=== PATIENT | female | born 1995 | race Caucasian/White ===

== ENCOUNTER → 2016-05-08 | Outpatient (CLI) | payer BC ==
[~2016-05-08] VITALS: Ht 166.4 cm; Wt 124.7 kg
[~2016-05-08] MED LIST: JULEBER 28 DAY1 EACH PO; LEXAPRO 10MG10 MG PO; MINOCIN 50M50 MG/CAP PO; MULTIPLE VITAMI1 CAP PO; MULTIVITAMIN FO1 CAP PO; NORCO 325 MG-51 TAB PO; PROMETHAZINE12.5 M5 PO; ROXICODONE 55 MG/TAB PO; SYNTHROID 0.0.025 MG PO
[2016-05-08 08:18] VITALS: BP 131/50; PULSE 107
[2016-05-08 09:23] VITALS: BP 131/50; PULSE 107
[2016-05-08 09:59] VITALS: BP 131/50; PULSE 107
== END ==
LOC: LIGHT
DX: F33.8 Other recurrent depressive disorders (principal); R73.01 Impaired fasting glucose; E03.8 Other specified hypothyroidism; E88.81 Metabolic syndrome and other insulin resistance; Z68.42 Body mass index [BMI] 45.0-49.9, adult

== ENCOUNTER → 2016-06-13 | Outpatient (CLI) | payer BC ==
[~2016-06-13] VITALS: Ht 166.4 cm; Wt 122.0 kg
[2016-06-13 13:09] VITALS: BP 133/65; PULSE 107
== END ==
LOC: LIGHT 05-20 10:14
DX: F33.8 Other recurrent depressive disorders (principal); E03.8 Other specified hypothyroidism; E88.81 Metabolic syndrome and other insulin resistance; Z68.41 Body mass index [BMI] 40.0-44.9, adult

== ENCOUNTER → 2016-06-17 | Outpatient (CLI) | payer BC | LOC: LIGHT 08:54 | DX: F33.8 Other recurrent depressive disorders (principal); E03.8 Other specified hypothyroidism; E88.81 Metabolic syndrome and other insulin resistance; Z68.42 Body mass index [BMI] 45.0-49.9, adult ==

== ENCOUNTER → 2016-07-08 | Outpatient (CLI) | payer BC | LOC: LIGHT 10:06 | DX: Z01.818 Encounter for other preprocedural examination (principal) ==

== ENCOUNTER → 2016-07-11 | Outpatient (CLI) | payer BC ==
[~2016-07-11] VITALS: Ht 166.4 cm; Wt 121.1 kg
[2016-07-11 10:19] VITALS: BP 122/54; PULSE 90
== END ==
LOC: LIGHT 10:15
DX: F33.9 Major depressive disorder, recurrent, unspecified (principal); E03.9 Hypothyroidism, unspecified; E88.81 Metabolic syndrome and other insulin resistance

== ENCOUNTER → 2016-07-22 | Outpatient (CLI) | payer BC | LOC: BHSO 08:44 | DX: Z01.818 Encounter for other preprocedural examination (principal) ==

== ENCOUNTER → 2016-07-22 | Outpatient (CLI) | payer BC ==
[~2016-07-22] VITALS: Ht 166.4 cm; Wt 123.8 kg
[2016-07-22 18:17] VITALS: BP 116/62; PULSE 96
== END ==
LOC: LIGHT 13:45 → BHSO 13:45 → LIGHT 13:53
DX: F33.9 Major depressive disorder, recurrent, unspecified (principal); E03.9 Hypothyroidism, unspecified; E88.81 Metabolic syndrome and other insulin resistance

== ENCOUNTER → 2016-08-06 | Outpatient (CLI) | payer BC | LOC: LIGHT | DX: Z02.89 Encounter for other administrative examinations (principal) ==

== ENCOUNTER 2016-08-21 09:41 | Day surgery (SDC) | payer BC ==
[2016-08-21] VITALS (10 sets, daily range): BP systolic 116–139; BP diastolic 57–70; PULSE 47–87; TEMP 97.6–98.5
[~2016-08-21] VITALS: Ht 165.1 cm; Wt 119.2 kg
[~2016-08-21 09:41] MED LIST changes: -MULTIVITAMIN FO1 CAP PO; -NORCO 325 MG-51 TAB PO; -PROMETHAZINE12.5 M5 PO; -ROXICODONE 55 MG/TAB PO
[2016-08-21 15:27] LABS: HEMOGLOBIN 13.7 g/dl (12.5-16.0)
[2016-08-22 02:18] VITALS: BP 122/68; PULSE 80; TEMP 97.5
[2016-08-22 04:54] VITALS: BP 114/55; PULSE 64; TEMP 98.2
[2016-08-22 09:27] VITALS: BP 120/66; PULSE 48; TEMP 98.4
[2016-08-22 14:06] VITALS: BP 123/62; PULSE 44; TEMP 98.1
[2016-08-22] MEDS ORDERED: ROXICODONE 55 MG/TAB PO (18:09)
[2016-08-22] MEDS ORDERED: PROMETHAZINE12.5 M5 PO (18:10)
[2016-09-02] MEDS ORDERED: MULTIVITAMIN FO1 CAP PO (14:57)
[2016-09-16] MEDS ORDERED: JULEBER 28 DAY1 EACH PO (17:16)
== END 2016-08-22 18:20 | disposition home or self-care (01) ==
LOC: SDCO 09:41 → JCC 13:50 → SDCO 08-22 18:20
PROVIDERS: Surgery
DX: E66.01 Morbid (severe) obesity due to excess calories (principal); F32.9 Major depressive disorder, single episode, unspecified; E03.9 Hypothyroidism, unspecified; E28.2 Polycystic ovarian syndrome; E88.81 Metabolic syndrome and other insulin resistance; Z68.41 Body mass index [BMI] 40.0-44.9, adult
CPT/HCPCS: OP; A9284; J1100; J1170; J1885; J2405; J2550; J2704; J2765; J3010; J7120; Q9968

== ENCOUNTER 2016-08-28 13:09 | Emergency (ER) | payer BC ==
[~2016-08-28] VITALS: Ht 165.1 cm; Wt 113.6 kg
[~2016-08-28 13:09] MED LIST changes: +PROMETHAZINE12.5 M5 PO; +ROXICODONE 55 MG/TAB PO
[2016-08-28 13:19] VITALS: BP 127/64; PULSE 85; TEMP 98.7
[2016-08-28 15:36] LABS: BASO % 0.3 % (0.0-2.0); EOS # 0.4 (0.0-0.7); EOS % 3.9 % (0-4.0); GRAN # 6.7 (1.4-6.5); GRAN % 68.4 % (42.2-75.2); HEMOGLOBIN 15.3 g/dl (12.5-16.0); LYMPH % 20.8 % (20.0-51.0); MEAN CELL VOLUME 83 fl (80.0-100.0); MEAN CORPUSCULAR HEMOGLOBIN 28 pg (27.0-31.0); MEAN CORPUSCULAR HGB CONC 34 g/dl (33.0-37.0); MEAN PLATELET VOLUME 8.8 fl (7.4-10.4); MONO # 0.6 (0.1-0.6); MONO % 6.2 % (1.7-9.3); PLATELET COUNT 241 K/mm3 (130-400); RED BLOOD COUNT 5.43 M/mm3 (4.10-5.30); REDCELL DISTRIBUTION WIDTH-CV 12.2 % (11.5-14.5); WHITE BLOOD COUNT 9.8 K/mm3 (4.8-10.8)
[2016-08-28 15:46] LABS: ADJUSTED CALCIUM 10.2 mg/dL (8.4-10.2); ALBUMIN 4.9 gm/dL (3.5-5.0); CALCIUM 10.9 mg/dL (8.4-10.2); CREATININE, serum 0.8 mg/dL (0.52-1.25); POTASSIUM 4.3 mmol/L (3.4-5.0); TOTAL PROTEIN 8.9 gm/dL (6.4-8.2)
[2016-08-28] MEDS ORDERED: NORCO 325 MG-51 TAB PO (16:55)
[2016-09-02] MEDS ORDERED: MULTIVITAMIN FO1 CAP PO (14:57)
[2016-09-16] MEDS ORDERED: JULEBER 28 DAY1 EACH PO (17:16)
== END 2016-08-28 17:18 | disposition home or self-care (01) ==
LOC: COL.ER 13:09
PROVIDERS: Physician Assistant Medical
DX: R10.11 Right upper quadrant pain (principal); R11.0 Nausea; Z98.84 Bariatric surgery status
CPT/HCPCS: J2270; J2405

== ENCOUNTER → 2016-09-02 | Outpatient (CLI) | payer BC ==
[~2016-09-02] VITALS: Ht 165.1 cm; Wt 112.5 kg
[~2016-09-02] MED LIST changes: +MULTIVITAMIN FO1 CAP PO; +NORCO 325 MG-51 TAB PO
[2016-09-02 14:58] VITALS: BP 100/60; PULSE 80
== END ==
LOC: LIGHT
DX: E66.9 Obesity, unspecified (principal); Z68.41 Body mass index [BMI] 40.0-44.9, adult; Z71.3 Dietary counseling and surveillance

== ENCOUNTER → 2016-09-16 | Outpatient (CLI) | payer BC ==
[~2016-09-16] VITALS: Ht 165.1 cm; Wt 110.9 kg
[2016-09-16 17:16] VITALS: BP 96/60; PULSE 88
== END ==
LOC: LIGHT 09:42
DX: F33.9 Major depressive disorder, recurrent, unspecified (principal); E03.9 Hypothyroidism, unspecified; E88.81 Metabolic syndrome and other insulin resistance; Z68.41 Body mass index [BMI] 40.0-44.9, adult; Z71.3 Dietary counseling and surveillance

== ENCOUNTER → 2016-10-28 | Outpatient (CLI) | payer BC ==
[~2016-10-28] VITALS: Ht 165.1 cm; Wt 102.5 kg
[2016-10-28 16:35] VITALS: BP 116/70; PULSE 72
== END ==
LOC: LIGHT 09-30 14:07
DX: F33.9 Major depressive disorder, recurrent, unspecified (principal); E88.81 Metabolic syndrome and other insulin resistance; E03.9 Hypothyroidism, unspecified; Z68.37 Body mass index [BMI] 37.0-37.9, adult; Z71.3 Dietary counseling and surveillance